=== PATIENT | female | born 1975 | race African-American/Black ===

== ENCOUNTER 2021-05-24 11:45 | Emergency (ER) | payer BC ==
[~2021-05-24] VITALS: Ht 170.2 cm; Wt 70.0 kg
[2021-05-24] MEDS ORDERED: ACTIVATED CHARCOAL 50 G/240 ML TUBE PO ONE (12:30)
[2021-05-24 12:38] LABS: CHLORIDE 105 mEq/L (98-107)
[2021-05-24 12:41] LABS: ETHANOL BLOOD < 10 mg/dL
[2021-05-24 14:12] LABS: BASOPHILS % 1.2 % (0.0-2.0); EOSINOPHILS % 6.3 % (0.0-5.0); HEMATOCRIT. 39.6 % (36.0-48.0); HEMOGLOBIN. 12.9 g/dL (12.0-16.0); LYMPHOCYTES % 35.9 % (20.0-50.0); MEAN CORPUSCULAR HEMOGLOBIN 29.8 pg (28.0-32.0); MEAN CORPUSCULAR VOLUME 91.5 fL (81.0-99.0); MEAN PLATELET VOLUME 7.8 fl (7.4-10.4); MONOCYTES % 11.5 % (2.0-8.0); NEUTROPHILS % 45.1 % (40.0-76.0); PLATELET 296 x1000/uL (130-400); RED BLOOD CELL COUNT 4.33 mill/uL (4.2-5.4); RED CELL DISTRIBUTION WIDTH 13.7 % (11.6-14.6)
[2021-05-24 17:02] VITALS: BP 97/58
== END 2021-05-24 17:18 | disposition home or self-care (01) ==
LOC: ER 12:05
DX: T43.621A Poisoning by amphetamines, accidental (unintentional), initial encounter (principal); X58.XXXA Exposure to other specified factors, initial encounter; F15.10 Other stimulant abuse, uncomplicated; M79.7 Fibromyalgia; Z88.2 Allergy status to sulfonamides
CPT/HCPCS: 36415; 80053; 80307; 80320; 80329; 81025; 85025; 93005; 99284; G0480